=== PATIENT | male | born 1985 | race Caucasian/White ===

== ENCOUNTER 2020-10-12 18:53 | Emergency (ER) | payer OTHER ==
[2020-10-12] MEDS ORDERED: ONDANSETRON 4 MG/2 ML VIAL IVPUSH ONE (19:19)
[2020-10-12] MEDS ORDERED: METOCLOPRAMIDE HCL INJECTION 10 MG/2 ML VIAL IVPB ONE (19:34)
[2020-10-12 19:36] VITALS: TEMP 97.6; BMI 20.2
[2020-10-12 20:27] LABS: BASO % 0.5 % (0-2.0); EOS % 1.2 % (0-4.5); HEMATOCRIT 47.9 % (35.4-49); HEMOGLOBIN 16.4 GM/dL (11.7-16.9); LYMPH % 35.1 % (8-40); MCH 31.8 pg (25.7-33.7); MCHC 34.3 g/dl (32.0-35.9); MEAN CELL VOLUME 92.8 fl (80-96); MEAN PLT VOLUME 9.7 fl (7.5-11.1); MONO % 3.7 % (3.8-10.2); NEUT % 59.5 % (42.8-82.8); PLATELET COUNT 211 K/MM3 (134-434); RBC 5.16 M/mm3 (4.00-5.60); RDW 14.4 % (11.9-15.9); WHITE BLOOD COUNT 11.9 K/mm3 (4.0-10.0)
[2020-10-12] MEDS ORDERED: LACTATED RINGERS SOLUTION 1,000 ML/1,000 ML INFUS.BAG NR STA (20:38)
[2020-10-12] MEDS ORDERED: LIDOCAINE 5% TOPICAL PATCH TP ONE (20:54)
[2020-10-12 20:55] LABS: CHLORIDE 103 mmol/L (98-107); SODIUM 134 mmol/L (136-145)
[2020-10-12] MEDS ORDERED: KETOROLAC TROMETHAMINE 15 MG/ML VIAL IVPUSH ONE (20:55)
[2020-10-12 20:57] LABS: ALBUMIN 4.3 g/dl (3.4-5.0); CALCIUM 9.8 mg/dL (8.5-10.1)
[2020-10-12 20:58] LABS: ANION GAP 13 MMOL/L (8-16); BLOOD UREA NITROGEN 17.7 mg/dL (7-18); CO2 19 mmol/L (21-32); GLUCOSE,RANDOM 167 mg/dL (74-106)
[2020-10-12 21:00] LABS: SGOT/AST 27 U/L (15-37); SGPT/ALT 43 U/L (13-61)
[2020-10-12 21:01] LABS: CREATININE 1.4 mg/dL (0.55-1.3)
[2020-10-12 21:02] LABS: BILIRUBIN,TOTAL 0.3 mg/dL (0.2-1); TOT PROT 8.1 g/dl (6.4-8.2)
[2020-10-12 21:03] LABS: ALK PHOS 95 U/L (45-117)
[2020-10-12] MEDS ORDERED: METOCLOPRAMIDE HCL INJECTION 10 MG/2 ML VIAL ONE (21:23)
[2020-10-12] MEDS ORDERED: LIDOCAINE 5% TOPICAL PATCH ONE (21:24)
[2020-10-12] MEDS ORDERED: KETOROLAC TROMETHAMINE 15 MG/ML VIAL ONE (21:24)
[2020-10-12] MEDS ORDERED: lamoTRIgine 100 MG TABLET PO ONE (21:36)
[2020-10-12] MEDS ORDERED: lamoTRIgine 100 MG TABLET ONE (22:12)
[2020-10-12 23:26] VITALS: BP 132/52; PULSE 86
[2020-10-13] MEDS ORDERED: LIDOCAINE PATCH REMOVAL MC SCH (09:00)
== END 2020-10-12 23:44 | disposition home or self-care (01) ==
LOC: JER 18:53
PROC: 3E033NZ Introduction of Analgesics, Hypnotics, Sedatives into Peripheral Vein, Percutaneous Approach (ICD-10-PCS; principal; 2020-10-12)
PROC: 3E033GC Introduction of Other Therapeutic Substance into Peripheral Vein, Percutaneous Approach (ICD-10-PCS; 2020-10-12)
PROC: 3E0333Z Introduction of Anti-inflammatory into Peripheral Vein, Percutaneous Approach (ICD-10-PCS; 2020-10-12)
PROC: 3E0337Z Introduction of Electrolytic and Water Balance Substance into Peripheral Vein, Percutaneous Approach (ICD-10-PCS; 2020-10-12)
DX: R56.9 Unspecified convulsions (principal)
CPT/HCPCS: 36415; 70450-TC; 71045-TC-FY; 80053; 80307; 82550; 82553; 84484; 85025; 93005; 93010; 96361; 96374; 96375; 99285-25